=== PATIENT | female | born 2000 | race Caucasian/White ===

== ENCOUNTER → 2019-04-12 17:15 | Outpatient (CLI) | payer OTHER, SELFPAY ==
[2018-12-30 15:59] VITALS: BMI 23.8
--- NOTE | 2019-04-12 17:18 | RAD_ITS ---
STUDY: X-RAY - ABDOMEN/PELVIS REASON FOR EXAM: Female, 18 years old. Constipation TECHNIQUE: 3 frontal views of the abdomen were performed COMPARISON: 05 May 2017 FINDINGS: Normal visualized lung bases. There is an unremarkable bowel gas pattern. There is no demonstrated free abdominal air. The visualized liver, spleen and kidneys are grossly normal in size and morphology. Normal soft tissue structures. Normal visualized osseous structures. RAD/Abd Inc Decub and/or Erect IMPRESSION: Normal x-ray examination of the abdomen and pelvis. Electronically Signed: Minna Chapa, at 18:36 EDT Tel , Service support ,
== END ==
PROVIDERS: Family Provider Family Medicine; PCP Family Medicine; Referring Provider Family Medicine; Visit Provider Family Medicine
DX: K59.00 Constipation, unspecified (principal)
CPT/HCPCS: 74019

== ENCOUNTER → 2020-05-01 11:58 | Outpatient (CLI) | payer OTHER, SELFPAY ==
[2020-05-01 11:53] VITALS: BMI 23.8
--- NOTE | 2020-05-01 12:00 | RAD_ITS ---
STUDY: X-RAY - LUMBAR SPINE REASON FOR EXAM: Female, 19 years old. hx of soreness in lower back, over a week ago had a hard jump while riding a horse, now back pain again today after water skiing recently TECHNIQUE: 5 view(s) of the lumbar spine were obtained. COMPARISON: None FINDINGS: Normal lumbar lordosis. There is no substantial scoliosis. There is a normal alignment of the vertebrae. Normal vertebral bodies and endplates. Normal disc space heights. The soft tissue structures are unremarkable. RAD/L/S Spine Min 4 Views IMPRESSION: Normal x-ray examination of the lumbar spine. Electronically Signed: Elliot Vargas MD at 12:23 EDT , Service support ,
== END ==
PROVIDERS: PCP Family Medicine; Referring Provider Physician Assistant Surgical; Visit Provider Physician Assistant Surgical
DX: S39.012A Strain of muscle, fascia and tendon of lower back, initial encounter (principal)
CPT/HCPCS: 72110

== ENCOUNTER 2020-06-08 16:00 | Outpatient (RCR) | payer OTHER, SELFPAY ==
[2020-04-04 14:35] VITALS: BMI 23.8
[2020-05-01 11:53] VITALS: BMI 23.8
--- NOTE | 2020-05-03 13:41 | MASS.EVAL_ITS ---
Massage Therapy Evaluation: Initial Evaluation Date: 05/01/2020 SUBJECTIVE: Aliza is a 19 year old female who was referred to the [facility] for a massotherapy evaluation by Dr. Yennifer Khoury with the diagnosis of neck and hip pain. She presents today with the symptoms of pain, stiffness and tension in low back and hips. Aliza reports having a past medical history of neck, shoulders, back pain. She reports that her low back is in so much pain she can not get comfortable and she had an X-ray done. She reports having minimal improvement with exercise and stretching over the last few days. She has stopped working out to recover. OBJECTIVE: Upon observation Aliza has some posture issues with her head and shoulders forward from the neutral position in sitting and standing. After examination and palpation, I found Aliza to have high muscle tension with tenderness and myofascial restrictions in her sub occipitals, levator scapulae, trapezius, rhomboids, scalenes, and thoracic paraspinals. Her QL?s, lumbar paraspinals, piriformis, glute medius and minimus all were very tight with fascial restrictions, tender points and trigger points. The first treatment consisted of a one hour massage to her upper body with myofascial release, muscle stripping, trigger point compression techniques, and cervical manual traction. The patient does not respond to deep tissue massages, instead she responds well to gradually working into deep pressure. ASSESSMENT: I feel that Aliza is a good candidate for massotherapy at this time. She had a favorable response to the first treatment with reduction in her muscle aches, pain and tension. She also had improvement in her cervical flexibility and low back flexibility. PLAN: The plan of care was reviewed with the patient. The patient is to be seen on an as needed basis for a total of ten sessions with the recommendation of once every month for a one hour treatment.
--- NOTE | 2020-10-04 17:10 | DS.PCM_ITS ---
Massage Therapy Discharge Summary: Discharge Date: 10/04/2020 Aliza was seen for a massotherapy evaluation on 05/01/2020 with the diagnosis of neck and hip pain. She was treated with two sessions of massage therapy consisting of deep pressure soft tissue techniques, myofascial release and trigger point compression to her cervical, thoracic, lower back, lower extremities and hips. At this time this patient is being discharged from our care at [facility] facility.
== END 2020-06-08 19:00 | disposition home or self-care (01) ==
LOC: MASS 16:00
PROVIDERS: PCP Family Medicine; Referring Provider Family Medicine; Visit Provider Family Medicine
DX: M79.10 Myalgia, unspecified site (principal)
CPT/HCPCS: 97124

== ENCOUNTER 2021-03-22 09:02 | Outpatient (RCR) | payer OTHER, SELFPAY ==
[2020-05-01 11:53] VITALS: BMI 23.8
== END 2021-04-26 23:59 ==
LOC: IMMUN 09:02
PROVIDERS: PCP Family Medicine; Referring Provider Family Medicine; Visit Provider Family Medicine
DX: Z23 Encounter for immunization (principal)
CPT/HCPCS: 0001A; 0002A; 91300

== ENCOUNTER → 2023-12-20 | Outpatient (CLI) | payer OTHER, SELFPAY ==
--- OUTSIDE RECORDS SUMMARY | 2023-12-20 08:47 | XMS RPT_ITS | CCD ---
Author Name Unknown Address [address] [facility] [address] [place] [address] Organization [facility] Care Team Providers Care Document Specialist Name Role Phone Yennifer Michael Primary Care Provider Unavailable Primary Care Provider Unavailabl e Self, Self Primary Care Provider Unavailabl e JANIYA SHEN Attending Unavailable SELF, SELF Primary Care Unavailable SELF, SELF Referring Unavailable SELF, SELF Primary Care Unavailable ENE MILLER Attending Unavailabl e SELF, SELF Referring Unavailable Yennifer Michael Primary Care Provider [phone] JEN GILLETTE Attending Unavailable YENNIFER MICHAEL Primary Care Unavailable Allergies Allergy Classification Reported Allergen(s) Allergy Type Date of Onset Reaction(s) Facility (9 sources) Meperidine; Translations: [MEPERIDINE] Drug Allergy 10-18-2019 Hives, Anaphylaxis [facility] (9 sources) Morphine; Translations: [MORPHINE] Drug Allergy 10-18-2019 Hives, Anaphylaxis [facility] Medications Current Medications Medication Drug Class(es) Dates Sig (Normalized) Sig (Original) ondansetron 4 mg disintegrating oral tablet (2 sources) Serotonin-3 Receptor Antagonist Start: 01-22-2023 End: 01-22-2023 Ondansetron 4mg/2ml (ZOFRAN) injection 4 mg Completed/Discontinued Medications Medication Drug Class(es) Dates Sig (Normalized) Sig (Original) Acetone (2 sources) End: 03-15-2022 ACETONE TOPICAL Apply to affected area. 0 03/15/2022 Discontinued (Course of therapy completed) Problems Active Problems Problem Classification Problem Date Documented Da te Episodic/Chronic Fluid and electrolyte disorders (3 sources) Hypokalemia; Translations: [Hypokalemia] Onset: 01-22-2023 Episodic Inflammatory diseases of female pelvic organs (1 source) Acute vaginitis; Translations: [Acute vaginitis] 05-30-2023 Episodic Nausea and vomiting (3 sources) Nausea and vomiting; Translations: [Nausea with vomiting, unspecified] Onset: 01-22-2023 Episodic Noninfectious gastroenteritis (4 sources) Gastroenteritis; Translations: [Noninfective gastroenteritis and colitis, unspecified] Onset: 01-22-2023 Episodic Other gastrointestinal disorders (1 source) Diarrhea; Translations: [Diarrhea, unspecified] Episodic Other gastrointestinal disorders (2 sources) Diarrhea, unspecified; Translations: [Diarrhea, unspecified] Onset: 01-22-2023 Episodic Other screening for suspected conditions (not mental disorders or infectious disease) (1 source) Patient encounter status; Translations: [Encounter for screening for malignant neoplasm of cervix] Episodic Other upper respiratory disease (1 source) Pain in throat; Translations: [Pain in throat] Episodic Past or Other Problems Problem Classification Problem Date Documented Da te Episodic/Chronic Abdominal pain (5 sources) Abdominal pain; Translations: [Unspecified abdominal pain] Onset: 01-08-2008 01-08-2008 Episodic Other upper respiratory disease (2 sources) Pain in throat; Translations: [Pain in throat] Onset: 10-04-2022 Episodic Viral infection (3 sources) Viral disease; Translations: [Viral infection, unspecified] Onset: 10-04-2022 Episodic Results Test Name Value Interpretation Reference Range Facil ity Vital Signs Date Time Vital Sign Value Performing Clinician Facility 05-30-2023 10:43-0400 Body height 162.6 cm Jen Gillette APRN.EMMETT Work Phone: [facility] 05-30-2023 10:43-0400 Body weight 70.31 kg Jen Gillette APRN.EMMETT Work Phone: [facility] 05-30-2023 10:43-0400 Diastolic blood pressure 72 mm[Hg] Jen Gillette APRN.EMMETT Work Phone: [facility] 05-30-2023 10:43-0400 Systolic blood pressure 114 mm[Hg] Jen Gillette APRN.EMMETT Work Phone: [facility] 01-22-2023 17:21-0400 Body height 162.6 cm Eddie Almaraz MD Work Phone: [facility] 01-22-2023 17:20-0400 Body temperature 98.2 [degF] Eddie Almaraz MD Work Phone: [facility] 01-22-2023 17:20-0400 Diastolic blood pressure 78 mm[Hg] Eddie Almaraz MD Work Phone: [facility] 01-22-2023 17:20-0400 Heart rate 117 /min Eddie Almaraz MD Work Phone: [facility] 01-22-2023 17:20-0400 Respiratory rate 16 /min Eddie Almaraz MD Work Phone: [facility] 01-22-2023 17:20-0400 SaO2% (BldA) [Mass fraction] 98 % Eddie Almaraz MD Work Phone: [facility] 01-22-2023 17:20-0400 Systolic blood pressure 139 mm[Hg] Eddie Almaraz MD Work Phone: [facility] 01-22-2023 15:08-0400 Body temperature 98.01 [degF] Ene Miller INFANT TEACHER-FAMILY LAW MEDIATOR Work Phone: [facility] 01-22-2023 15:08-0400 Body weight 68.08 kg Ene Miller INFANT TEACHER-FAMILY LAW MEDIATOR Work Phone: [facility] 01-22-2023 15:08-0400 Diastolic blood pressure 80 mm[Hg] Ene Miller INFANT TEACHER-FAMILY LAW MEDIATOR Work Phone: [facility] 01-22-2023 15:08-0400 Heart rate 115 /min Ene Miller INFANT TEACHER-FAMILY LAW MEDIATOR Work Phone: [facility] 01-22-2023 15:08-0400 Respiratory rate 16 /min Ene Miller INFANT TEACHER-FAMILY LAW MEDIATOR Work Phone: [facility] 01-22-2023 15:08-0400 SaO2% (BldA) [Mass fraction] 99 % Ene Paul INFANT TEACHER-FAMILY LAW MEDIATOR Work Phone: [facility] 01-22-2023 15:08-0400 Systolic blood pressure 130 mm[Hg] Ene Paul INFANT TEACHER-FAMILY LAW MEDIATOR Work Phone: [facility] 10-04-2022 12:14-0500 Body temperature 98.4 [degF] [facility] 10-04-2022 12:14-0500 Diastolic blood pressure 79 mm[Hg] [facility] 10-04-2022 12:14-0500 Heart rate 84 /min [facility] 10-04-2022 12:14-0500 Respiratory rate 16 /min [facility] 10-04-2022 12:14-0500 SaO2% (BldA) [Mass fraction] 99 % [facility] 10-04-2022 12:14-0500 Systolic blood pressure 125 mm[Hg] [facility] 03-15-2022 13:06-0400 Body height 161.5 cm Jen Gillette APRN.CNM Work Phone: [facility] 03-15-2022 13:06-0400 Body weight 66.04 kg Jen Gillette INFANT TEACHER.CNM Work Phone: [facility] 03-15-2022 13:06-0400 Diastolic blood pressure 82 mm[Hg] Jen Gillette INFANT TEACHER.CNM Work Phone: [facility] 03-15-2022 13:06-0400 Systolic blood pressure 114 mm[Hg] Jen Gillette INFANT TEACHER.CNM Work Phone: [facility] Encounters Encounter Date Encounter Type Care Provider Facility Start: 05-30-2023 End: 05-30-2023 ambulatory JEN GILLETTE Facility:[facility] Start: 05-30-2023 End: 05-30-2023 Patient encounter procedure Jne Gillette INFANT TEACHER.CNM Work Phone: OB/Gynecology Procedures Date Procedure Procedure Detail Performing Clinician Start: 01-22-2023 Infectious agent dna /rna influenza 1st 2 types Marni N Hamzah INFANT TEACHER-FAMILY LAW MEDIATOR Work Phone: Start: 01-22-2023 SARS-CoV-2 (COVID-19 ) RNA [Presence] in Unspecified specimen by SHRAVAN with probe detection Marni N Hamzah INFANT TEACHER-FAMILY LAW MEDIATOR Work Phone: Start: 01-22-2023 Urnls dip stick/tabl et reagent auto microscopy Eddie Almaraz MD Work Phone: Start: 01-22-2023 Urnls dip stick/tabl et rgnt auto w/o microscopy Eddie Almaraz MD Work Phone: Start: 01-22-2023 CBC AND ELECTRONIC DIFF Eddie Almaraz MD Work Phone: Start: 01-22-2023 Complete blood count with white cell differential, automated Eddie Almaraz MD Work Phone: Start: 01-22-2023 Creatinine blood Eddie Almaraz MD Work Phone: Start: 01-22-2023 MINT GREEN TOP TUBE Keyona Almaraz MD Work Phone: Start: 01-22-2023 Urnls dip stick/tabl et rgnt auto w/o microscopy Ene Miller INFANT TEACHER-FAMILY LAW MEDIATOR Work Phone: Start: 10-04-2022 Sars-cov-2 detection by dna/rna Lisette Delvalle PA-C Work Phone: Start: 10-04-2022 End: 10-04-2022 Iadna streptococcus group a amplified probe tq Lisette Delvalle PA-C Work Phone: Plan of Treatment Date Care Activity Detail Author Start: 05-28-2032 Tetanus vaccination TETANUS [facility] Start: 03-15-2025 PAP TESTING PAP TESTING [facility] Start: 06-27-2023 Influenza vaccination [facility] Start: 10-27-2022 DEPRESSION ASSESSMENT DEPRESSION ASSESSMENT [facility] Start: 10-18-2022 PAP TESTING PAP TESTING [facility] Start: 06-27-2022 [facility] Start: 09-12-2021 COVID-19 VACCINE (3 - Booster for Pfizer series) COVID-19 VACCINE (3 - Booster for Pfizer series) [facility] Start: 06-07-2021 COVID-19 VACCINE (3 - Booster for Pfizer series) COVID-19 VACCINE (3 - Booster for Pfizer series) [facility] Start: 06-07-2021 COVID-19 VACCINE (3 - Pfizer series) COVID-19 VACCINE (3 - Pfizer series) [facility] Start: 10-18-2020 CHLAMYDIA SCREENING (18-24) CHLAMYDIA SCREENING (18-24) [facility] Start: 10-18-2020 GC (GONORRHEA) SCREENING (18-24) GC (GONORRHEA) SCREENING (18-24) [facility] Start: 2019 Screening for malignant neoplasm of cervix CERVICAL CANCER SCREENING DISCUSSION [facility] Start: 2017 Urine microalbumin profile DTAP,TDAP,TD (1 - Tdap) [facility] Start: 2016 HEPATITIS C SCREENING HEPATITIS C SCREENING [facility] Start: 2016 HIV SCREENING HIV SCREENING [facility] Start: 2014 MENINGOCOCCAL B: Consider based on risk (1 of 2 - Patient Seeks Protection) MENINGOCOCCAL B: Consider based on risk (1 of 2 - Patient Seeks Protection) [facility] Start: 2014 Screening for Chlamydia trachomatis CHLAMYDIA SCREEN [facility] Start: 2013 HIV screening HIV SCREENING DISCUSSION [facility] Start: 2012 PEDS TO ADULT TRANSITION ANNUAL ASSESSMENT PEDS TO ADULT TRANSITION ANNUAL ASSESSMENT [facility] Start: 2010 Adult depression screening assessment DEPRESSION SCREENING [facility] Start: 2010 PEDS TO ADULT TRANSITION INITIAL DISCUSSION PEDS TO ADULT TRANSITION INITIAL DISCUSSION [facility] Start: 2009 HPV VACCINE (1 - 2-dose series) HPV VACCINE (1 - 2-dose series) [facility] Start: 2009 Vaccination for human papillomavirus HPV VACCINE ADOL (1 - 2-dose series) [facility] Start: 2008 MENINGOCOCCAL B: Consider based on risk (1 of 2 - Risk Bexsero 2-dose series) MENINGOCOCCAL B: Consider based on risk (1 of 2 - Risk Bexsero 2-dose series) [facility] Start: 2007 HPV VACCINE (1 - 2-dose series) HPV VACCINE (1 - 2-dose series) [facility] Start: 2003 COVID-19 VACCINE (1) COVID-19 VACCINE (1) [facility] Start: 1998 HEPATITIS B (1 of 3 - 3-dose series) HEPATITIS B (1 of 3 - 3-dose series) [facility] Start: 1998 Hepatitis C screening HEPATITIS C VIRUS SCREENING [facility] Start: 1998 Screening for Chlamydia trachomatis GONORRHEA SCREEN [facility] Chlamydia trachomatis+Neisseria gonorrhoeae DNA [Presence] in Unspecified specimen by SHRAVAN with probe detection GC/CHLAMYDIA DNA DET Lab Routine Encounter for gynecological examination without abnormal finding Encounter for screening for malignant neoplasm of cervix 03/15/2022 1:34 PM EDT [facility] Work Phone: EXTRA MICRO EXTRA MICRO Flui ds Routine 01/22/2023 6:17 PM EDT [facility] GOLD TOP TUBE GOLD TOP TUBE La b Routine 01/22/2023 5:28 PM EDT [facility] LAVENDER TOP TUBE LAVENDER TOP T UBE Lab Routine 01/22/2023 5:28 PM EDT [facility] LT BLUE TOP TUBE LT BLUE TOP TUB E Lab Routine 01/22/2023 5:28 PM EDT [facility] Microscopic observat ion [Identifier] in Vaginal fluid by Gram stain BACT/[place] VAG GRAM STAIN Microbiology Routine Acute vaginitis 05/30/2023 11:31 AM EDT [facility] Work Phone: PAP FLUID CERVICAL SCREENING PAP FLUID CERVICAL SCREENING Lab Routine Encounter for screening for malignant neoplasm of cervix 03/15/2022 1:34 PM EDT [facility] Work Phone: RAINBOW DRAW RAINBOW DRAW Lab Routine 01/22/2023 5:28 PM EDT [facility] Urinalysis with refl ex to microscopy and culture URINE DIPSTICK; REFLEX MICROSCOPY; REFLEX CULTURE Fluids Routine 01/22/2023 6:17 PM EDT [facility] Immunizations Immunization Date Immunization Notes Care Provider Cee gordon 08-10-2018 hepatitis A vaccine, pediatric/adolescent dosage, 2 dose schedule Jen Gillette INFANT TEACHER.CNM Work Phone: [facility] Work Phone: 08-10-2018 influenza, seasonal, injectable Jen Gillette INFANT TEACHER.CNM Work Phone: [facility] Work Phone: 09-18-2016 influenza, injectabl e, quadrivalent, contains preservative Jen Gillette INFANT TEACHER.CNM Work Phone: [facility] Work Phone: 05-29-2016 meningococcal polysaccharide (groups A, C, Y and W-135) diphtheria toxoid conjugate vaccine (MCV4P) Jen Gillette INFANT TEACHER.CNM Work Phone: [facility] Work Phone: 09-04-2015 influenza, seasonal, injectable Jen Gillette INFANT TEACHER.CNM Work Phone: [facility] Work Phone: 09-04-2015 meningococcal polysaccharide vaccine (MPSV4) Jen Gillette INFANT TEACHER.CNM Work Phone: [facility] Work Phone: 09-01-2013 influenza, seasonal, injectable Jen Gillette INFANT TEACHER.CNM Work Phone: [facility] Work Phone: 08-24-2012 influenza, seasonal, injectable Jen Gillette INFANT TEACHER.CNM Work Phone: [facility] Work Phone: Payers Date Payer Category Payer Private Health Insurance [id number] 2022 Private Health Insurance [id number] 2022 Unknown [employer] M [place] [id number] 2022-Present [address] [place] [address] [id number] 2022 Unknown [id number] 2019 Unknown MMO MMO TPA [id number] 2019-Present [address] [place] [address] PPO [id number] 1998 Unknown [id number] 1998 Unknown [id number] 1998 Unknown [id number] Social History Date Type Detail Facility Start: 10-04-2022 End: 05-30-2023 Tobacco smoking status INIS Never smoked tobacco [facility] Start: 10-17-2020 End: 05-30-2023 Alcohol intake Current drinker of alcohol (finding) [facility] Start: 10-18-2019 History SDOH Alcohol Comment social [facility] Start: 1998 Sex Assigned At Not on file [facility] Start: 03-15-2022 History SDOH Alcohol Comment social - rare [facility] Start: 03-05-2022 End: 01-22-2023 Exposure to SARS-CoV-2 (event) Not sure [facility] Start: 10-04-2022 End: 05-30-2023 Tobacco use and exposure Smokeless tobacco non-user [facility] Start: 1998 Sex Assigned At Female O [facility] Start: 11-13-2022 End: 05-30-2023 History of Social function [facility] Start: 11-13-2022 End: 05-30-2023 Tobacco use panel [facility] National Score (1-100), lower number is lower risk 49 [facility] Clinical Notes 01-30-2022 to 05-30-2023 Jen Gillette APRN.CNM - 05/30/2023 10:37 AM EDTTelephone Encounter - Alicja Thomas RN - 04/24/2023 9:34 AM EDTTelephone Encounter - Corrina Lucio - 04/24/2023 8:52 AM EDTAttachments Note Date & Type Note Facility 05-30-2023 Note HNO ID: [id number] Author: Jen Gillette APRN.CNM Service: ? Author Type: Senior Manager [employer] Type: Progress Notes Filed: 05/30/2023 11:47 AM Note Text: Aliza is a 22 year old who presents for an annual gynecologic exam without complaints. She is getting next month. 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 Menses: no menses - continuous OCPs. - May desire IUD Contraception: combined hormonal contraceptives HPV vaccine: No Last Pap: 03/22/2022 normal HPV: negative History of abnormal pap: No Last mammogram: never Sexually active: Yes Pain with intercourse: No Postcoital bleeding: No OB History T0 L0 SAB0 IAB0 Ectopic0 Multiple0 Live Births0 Auditor Appraiser History LMP: 11/27/2019 (Approximate), Drug Induced Amenorrhea Age at Menarche: Age at First : Age at Menopause: Auditor Appraiser History Comments: Sexual Activity: Yes; Male Contraception: Pill PAST MEDICAL HISTORY Diagnosis Date Anxiety state PAST SURGICAL HISTORY Procedure Laterality Date NONE FAMILY HISTORY Problem Relation Age of Onset Diabetes Father Asthma Maternal Grandmother SOCIAL HISTORY Social History Tobacco Use Smoking status: Never Smokeless tobacco: Never Vaping Use Vaping Use: Never used Substance Use Topics Alcohol use: Yes Comment: social - rare Drug use: No REVIEW OF SYSTEMS Abdomen: No abdominal pain, nausea, vomiting, diarrhea, or constipation. No bloating, early satiety, indigestion, or increased flatulence. Bladder: No dysuria, gross hematuria, urinary frequency, urinary urgency, or incontinence. Breast: No breast lumps, nipple d/c, overlying skin changes, redness or skin retraction. Allergies and current medication updated:Yes EXAM: BP 114/72 Ht 5' 4 (1.63m) LMP 11/27/2019 GENERAL: pleasant, female in no apparent distress HEENT: Normocephalic, atraumatic, mucus membranes moist, and no lesions NECK: Supple, full range of motion, no adenopathy, and thyroid normal DERMATOLOGY: Normal, without lesions, non-icteric, and non-hirsute BREAST: soft, non-tender, symmetric, no dominant mass, normal nipple-areolar complex, no lymphadenopathy, and no nipple discharge CHEST: Normal inspiratory effort ABDOMEN: soft, non-tender, and no masses PELVIC: external genitalia normal, normal Bartholin's glands, urethra, Flomaton's glands, no vulvar lesions, no cervical lesions, good vaginal support, physiologic discharge present, normal appearing perineal body and perianal region, Moderate amount of thick, yellow vaginal discharge present BIMANUAL: uterus normal size, shape and consistency, no adnexal masses, and non-tender RECTOVAGINAL: deferred. NEURO: alert and oriented x3,exam grossly non-focal EXTREMITIES: normal ASSESSMENT/PLAN: 1) Health maintenance: Pap/HPV up to date. Nutrition, exercise and routine health maintenance exams reviewed. BACT/Yeast swab completed 2) Contraception: combined hormonal contraceptives. Contraceptive options reviewed and information provided. May desire IUD after weddding 3) STD screening: Declined STD check. 4) Follow up one year or sooner as needed [facility] History of Presen t illness Narrative Aliza is a 22 year old who presents for an annual gynecologic exam without complaints. She is getting next month. 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 Menses: no menses - continuous OCPs. - May desire IUD Contraception: combined hormonal contraceptives HPV vaccine: No Last Pap: 03/22/2022 normal HPV: negative History of abnormal pap: No Last mammogram: never Sexually active: Yes Pain with intercourse: No Postcoital bleeding: No OB History T0 L0 SAB0 IAB0 Ectopic0 Multiple0 Live Births0 Auditor Appraiser History LMP: 11/27/2019 (Approximate), Drug Induced Amenorrhea Age at Menarche: Age at First : Age at Menopause: Auditor Appraiser History Comments: Sexual Activity: Yes; Male Contraception: Pill PAST MEDICAL HISTORY Diagnosis Date Anxiety state PAST SURGICAL HISTORY Procedure Laterality Date NONE FAMILY HISTORY Problem Relation Age of Onset Diabetes Father Asthma Maternal Grandmother SOCIAL HISTORY Social History Tobacco Use Smoking status: Never Smokeless tobacco: Never Vaping Use Vaping Use: Never used Substance Use Topics Alcohol use: Yes Comment: social - rare Drug use: No REVIEW OF SYSTEMS Abdomen: No abdominal pain, nausea, vomiting, diarrhea, or constipation. No bloating, early satiety, indigestion, or increased flatulence. Bladder: No dysuria, gross hematuria, urinary frequency, urinary urgency, or incontinence. Breast: No breast lumps, nipple d/c, overlying skin changes, redness or skin retraction. Allergies and current medication updated:Yes EXAM: BP 114/72 Ht 5' 4 (1.63m) LMP 11/27/2019 GENERAL: pleasant, female in no apparent distress HEENT: Normocephalic, atraumatic, mucus membranes moist, and no lesions NECK: Supple, full range of motion, no adenopathy, and thyroid normal DERMATOLOGY: Normal, without lesions, non-icteric, and non-hirsute BREAST: soft, non-tender, symmetric, no dominant mass, normal nipple-areolar complex, no lymphadenopathy, and no nipple discharge CHEST: Normal inspiratory effort ABDOMEN: soft, non-tender, and no masses PELVIC: external genitalia normal, normal Bartholin's glands, urethra, Flomaton's glands, no vulvar lesions, no cervical lesions, good vaginal support, physiologic discharge present, normal appearing perineal body and perianal region, Moderate amount of thick, yellow vaginal discharge present BIMANUAL: uterus normal size, shape and consistency, no adnexal masses, and non-tender RECTOVAGINAL: deferred. NEURO: alert and oriented x3,exam grossly non-focal EXTREMITIES: normal ASSESSMENT/PLAN: 1) Health maintenance: Pap/HPV up to date. Nutrition, exercise and routine health maintenance exams reviewed. BACT/Yeast swab completed 2) Contraception: combined hormonal contraceptives. Contraceptive options reviewed and information provided. May desire IUD after weddding 3) STD screening: Declined STD check. 4) Follow up one year or sooner as needed Jen Gillette APRN.CNM documented in this encounter [facility] 04-24-2023 Miscellaneous Notes Duplicate request. See [facility] rx refill encounter. Alicja Thomas RN Patient has been identified by name and date of : Yes Last office visit in this department: 03/15/2022 RX INSTRUCTIONS: Patient aware RX will be sent to pharmacy. No need to notify patient. Patient phones requesting refills as follows: Requested Prescriptions Pending Prescriptions Disp Refills Norethindrone Acet-Ethinyl Est (LOESTRIN ,) 1-20 mg-mcg per tablet 84 tablet 4 Sig: Take 1 tablet by mouth once daily. for continuous use, active pills only, new pack q 3 weeks Please review and advise. Corrina Lucio documented in this encounter [facility] 01-29-2023 Miscellaneous Notes Agree with plan! Yes she can start new pack this Friday! Do we need to send RX somewhere? Jen Gillette APRN.CNM Spoke with patient. 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 Ok to start a new pack this Friday? If so, she is aware that she would need to use back up contraception. Please advise. documented in this encounter [facility] 01-22-2023 Hospital Discharg e hellen Goodson APRN-RENAN - 01/22/2023 9:04 PM EDT Please use an over the counter fiber supplement such as Metamucil to help with diarrhea as this will provide bulk to the stool to help solidify the stool. Please use an over the counter probiotic to also help regulate the bowel movements. Please ensure you are drinking adequate amounts of water and alternating with a sports drink to ensure hydration and electrolyte replacement. The following attachments cannot be sent through Care Everywhere.Gastroenteritis (Yoruba)Oral Rehydration (Yoruba)documented in this encounter [facility] 01-22-2023 Physician Emergency department Note Medical Decision Making Patient initially sent over for concern of pyelonephritis. Patient's microscopy reveals negative bacteria. Do not suspect pyelonephritis and/or acute UTI based off of repeat urine. Patient's K was mildly low at 3.4 and this was replaced in the ER. Patient was also given 1 L of normal saline for hydration. White blood cell count was within normal limits. Suspect patient to have viral gastroenteritis and I recommend patient to use [id number] probiotic as well as fiber supplementation to help bowels return to normal as well as prescription for ondansetron ODT to help with nausea. Recommend aggressive oral hydration as well as clear liquid diet, advancing as tolerated. Return precautions discussed. Covid and flu swabs are still pending at this time. Patient is adamant that she wants to leave at this time despite fluid COVID test still pending. I have recommended that she follow up MyChart to see the results and she will be discharged. Amount and/or Complexity of Data Reviewed External Data Reviewed: labs and notes. Labs: ordered. Decision-making details documented in ED Course. Risk Prescription drug management. DANNI Ham 01/22/232104 DANNI Ham 01/22/232110 [facility] 01-22-2023 Emergency department Note Medical Decision Making Patient initially sent over for concern of pyelonephritis. Patient's microscopy reveals negative bacteria. Do not suspect pyelonephritis and/or acute UTI based off of repeat urine. Patient's K was mildly low at 3.4 and this was replaced in the ER. Patient was also given 1 L of normal saline for hydration. White blood cell count was within normal limits. Suspect patient to have viral gastroenteritis and I recommend patient to use [id number] probiotic as well as fiber supplementation to help bowels return to normal as well as prescription for ondansetron ODT to help with nausea. Recommend aggressive oral hydration as well as clear liquid diet, advancing as tolerated. Return precautions discussed. Covid and flu swabs are still pending at this time. Patient is adamant that she wants to leave at this time despite fluid COVID test still pending. I have recommended that she follow up MyChart to see the results and she will be discharged. Amount and/or Complexity of Data Reviewed External Data Reviewed: labs and notes. Labs: ordered. Decision-making details documented in ED Course. Risk Prescription drug management. DANNI Ham 01/22/232104 DANNI Ham 01/22/232110 dEPARTMENT of Emergency Medicine CHIEF COMPLAINT Vomiting, Diarrhea, and Urinary Pain HPI Aliza Centeno is a 22 y.o. female who presents with no past history complains of 4 days of left flank pain and now one day of nausea, vomiting and diarrhea. There is no associated fever, abdominal pain or dysuria. There are no aggravating or relieving factors. REVIEW OF SYSTEMS Review of Systems PAST MEDICAL HISTORY No past medical history on file. SURGICAL HISTORY Past Surgical History: Procedure Laterality Date ARM SURGERY CURRENT MEDICATIONS No current facility-administered medications for this encounter. No current outpatient medications on file. ALLERGIES Allergies Allergen Reactions Meperidine Anaphylaxis and Hives Morphine Anaphylaxis and Hives FAMILY HISTORY No family history on file. SOCIAL HISTORY Social History Socioeconomic History Marital status: Single Spouse name: Not on file Number of children: Not on file Years of education: Not on file Highest education level: Not on file Occupational History Not on file Tobacco Use Smoking status: Never Smokeless tobacco: Never Vaping Use Vaping Use: Never used Substance and Sexual Activity Alcohol use: Yes Drug use: Never Sexual activity: Not on file Other Topics Concern Not on file Social History Narrative Not on file Social Determinants of Health Financial Resource Strain: Not on file Food Insecurity: Not on file Transportation Needs: Not on file Physical Activity: Not on file Stress: Not on file Social Connections: Not on file Intimate Partner Violence: Not on file Housing Stability: Not on file PHYSICAL EXAM BP 139/78 Pulse 117 Temp 98.2 F (36.8 C) (Oral) Resp 16 Ht 1.626 m (5' 4 ) SpO2 98% BMI 25.76 kg/m Smoking Status Never Physical Exam Constitutional: Appearance: She is well-developed. HENT: Head: Normocephalic and atraumatic. Eyes: Pupils: Pupils are equal, round, and reactive to light. Cardiovascular: Rate and Rhythm: Normal rate and regular rhythm. Pulmonary: Effort: Pulmonary effort is normal. No respiratory distress. Breath sounds: Normal breath sounds. Abdominal: Palpations: Abdomen is soft. There is no mass. Tenderness: There is no abdominal tenderness. There is no guarding or rebound. Skin: General: Skin is warm and dry. Neurological: Mental Status: She is alert and oriented to person, place, and time. ED COURSE & MEDICAL DECISION MAKING Medical Decision Making AGE vs dehydration vs pyelonephritis, plan lab and sx control AGE (acute gastroenteritis): acute illness or injury Amount and/or Complexity of Data Reviewed Labs: ordered. Risk Prescription drug management. Parenteral controlled substances. Eddie Almaraz MD 01/22/231810 Pt sts she started to have flank pain Friday then started to have vomiting, fever, body aches, diarrhea. Pt sts burning with urination that started an hour ago. Pt sent from for fluids and further work up for kidney infection. documented in this encounter [facility] 01-22-2023 Physician Emergency department Note dEPARTMENT of Emergency Medicine CHIEF COMPLAINT Vomiting, Diarrhea, and Urinary Pain HPI Aliza Centeno is a 22 y.o. female who presents with no past history complains of 4 days of left flank pain and now one day of nausea, vomiting and diarrhea. There is no associated fever, abdominal pain or dysuria. There are no aggravating or relieving factors. REVIEW OF SYSTEMS Review of Systems PAST MEDICAL HISTORY No past medical history on file. SURGICAL HISTORY Past Surgical History: Procedure Laterality Date ARM SURGERY CURRENT MEDICATIONS No current facility-administered medications for this encounter. No current outpatient medications on file. ALLERGIES Allergies Allergen Reactions Meperidine Anaphylaxis and Hives Morphine Anaphylaxis and Hives FAMILY HISTORY No family history on file. SOCIAL HISTORY Social History Socioeconomic History Marital status: Single Spouse name: Not on file Number of children: Not on file Years of education: Not on file Highest education level: Not on file Occupational History Not on file Tobacco Use Smoking status: Never Smokeless tobacco: Never Vaping Use Vaping Use: Never used Substance and Sexual Activity Alcohol use: Yes Drug use: Never Sexual activity: Not on file Other Topics Concern Not on file Social History Narrative Not on file Social Determinants of Health Financial Resource Strain: Not on file Food Insecurity: Not on file Transportation Needs: Not on file Physical Activity: Not on file Stress: Not on file Social Connections: Not on file Intimate Partner Violence: Not on file Housing Stability: Not on file PHYSICAL EXAM BP 139/78 Pulse 117 Temp 98.2 F (36.8 C) (Oral) Resp 16 Ht 1.626 m (5' 4 ) SpO2 98% BMI 25.76 kg/m Smoking Status Never Physical Exam Constitutional: Appearance: She is well-developed. HENT: Head: Normocephalic and atraumatic. Eyes: Pupils: Pupils are equal, round, and reactive to light. Cardiovascular: Rate and Rhythm: Normal rate and regular rhythm. Pulmonary: Effort: Pulmonary effort is normal. No respiratory distress. Breath sounds: Normal breath sounds. Abdominal: Palpations: Abdomen is soft. There is no mass. Tenderness: There is no abdominal tenderness. There is no guarding or rebound. Skin: General: Skin is warm and dry. Neurological: Mental Status: She is alert and oriented to person, place, and time. ED COURSE & MEDICAL DECISION MAKING Medical Decision Making AGE vs dehydration vs pyelonephritis, plan lab and sx control AGE (acute gastroenteritis): acute illness or injury Amount and/or Complexity of Data Reviewed Labs: ordered. Risk Prescription drug management. Parenteral controlled substances. Eddie Almaraz MD 01/22/23 [id number] [facility] Work Phone: 01-22-2023 Emergency department Note Pt sts she started to have flank pain Friday then started to have vomiting, fever, body aches, diarrhea. Pt sts burning with urination that started an hour ago. Pt sent from for fluids and further work up for kidney infection. [facility] 01-22-2023 History of Presen t illness Narrative Chief Complaint Patient presents with Nausea Vomiting Diarrhea History of Present Illness Ms. Centeno is a 22 y.o. female who presents today for evaluation of diarrhea, nausea/vomiting, body aches, sore throat, headache, left flank pain. Left flank pain onset 2 days ago. Followed by nausea/vomiting, elevated temperature (T max 100), body aches, fatigue, and diarrhea. Onset yesterday. Reports 3 episodes of vomiting today, 4 episodes of diarrhea today. Reports mild lightheadedness with standing up. Onset 3 days ago. Denies chest pain, SOB. Denies severe abdominal pain. Denies blood in stool, melena, hematemesis. Denies dysuria, urinary frequency. Reports last urinated about 6 hours ago. Patient has attempted to drink water and sprite, but has caused vomiting and diarrhea. Limited PO intake. Treatments tried: Tylenol and ibuprofen yesterday, none today Recent ill contacts? No Problem list, medication list reviewed and updated. Past medical, surgical, family, and social history reviewed and updated in [facility]. Vitals: 01/22/23 1508 BP: 130/80 Pulse: 115 Resp: 16 Temp: 98 degrees F (36.7 degrees C) TempSrc: Infrared SpO2: 99% Weight: 68.1 kg (150 lb 1.6 oz) Physical Exam Constitutional: General: She is not in acute distress. Cardiovascular: Rate and Rhythm: Regular rhythm. Tachycardia present. Heart sounds: Normal heart sounds. No murmur heard. Pulmonary: Effort: Pulmonary effort is normal. No respiratory distress. Breath sounds: Normal breath sounds. No wheezing. Abdominal: General: Abdomen is flat. Bowel sounds are normal. Palpations: Abdomen is soft. Tenderness: There is no abdominal tenderness. There is no right CVA tenderness, left CVA tenderness (mild tenderness to left back palpation), guarding or rebound. Skin: General: Skin is warm and dry. Neurological: Mental Status: She is alert and oriented to person, place, and time. ASSESSMENT/PLAN ICD-10-CM 1. Gastroenteritis K52.9 POCT URINE DIPSTICK AUTOMATED 2. Nausea and vomiting, unspecified vomiting type R11.2 POCT URINE DIPSTICK AUTOMATED 3. Diarrhea, unspecified type R19.7 POCT URINE DIPSTICK AUTOMATED The patient was seen today at [facility] and evaluated. Patient with left flank pain, fever, N/V/D, lightheadedness, tachycardia, and evidence of possible UTI on POCT urine dipstick. Concern for possible pyelonephritis vs gastroenteritis vs other pathology. Concern for dehydration requiring IV fluids. It was determined the patient needed a level of care beyond what can be offered at this facility. Recommendation patient be seen at: Emergency Room Patient agreed to go: Yes - patient to have family member drive her to [facility] ER. Patient verbalized understanding agreement with plan of care. All questions were answered. documented in this encounter [facility] 01-22-2023 Instructions DANNI Velazquez - 01/22/2023 3:00 PM EDT [facility] provides convenient, walk-in health care for common conditions as well as serious, edc-[id number] illnesses and injuries -- no appointment needed. If you re experiencing a serious or life-threatening illness or injury, visit the closest Emergency Department or call 911. Open seven days a week, our Advanced Immediate Care locations are staffed by providers who have emergency medical training, giving you the expertise of a hospital emergency department but with shorter wait times and at a lower cost. [facility] have extended care capabilities, including assessing mild to moderate abdominal pain, non-severe chest pain/shortness of breath and non-severe dizziness. Conditions treated and services offered include: Rps-lltd-rjzfkzhvqvb cuts and agosto Colds, flu and sore throat Stitches and suturing Minor sprains, strains and injuries Suspected broken bones or dislocations Urgent X-rays/CT and lab work Postoperative problems and concerns Suspected blood clots Urinary and kidney infections Allergic reactions Skin rashes and infections Most insurances accepted. A specialist copay will be collected, and coinsurance may be applicable if testing is required. Hours vary by location. [employer] users can reserve a spot in line. Reserving your spot is not an appointment, but helps to reduce your wait time upon arrival and notifies the clinical team you are coming. Every effort is made to see you at your reserved time, but please be advised that medical emergencies may arise. Locations [facility] in Outpatient Care [place] [address] [place] [address] 1st Floor, [address] [place] [address] Hours: 10:00 AM - 9:30 PM 7 days a week [facility] Im[facility] in Outpatient Care [address] Floor, [address] [place] [address] Hours: 10:00 AM - 9:30 PM 7 days a week [facility] [address] [place] [address] Entrance is located behind the Emergency Department on the west side of the building. Follow signs for Wound Care and Advanced Immediate Care. Hours: Friday - Friday: 4:00 PM - 9:30 PM Friday and Friday: 10:00 AM - 5:30 PM Patients ages 14 and older [facility] [address] [place] [address] Hours: Friday - Friday: 4:00 PM - 9:30 PM Friday and Friday: 10:00 AM - 5:30 PM Patients ages 14 and older documented in this encounter [facility] 10-04-2022 History of Presen t illness Narrative [facility] ENCOUNTER CHIEF COMPLAINT Sore Throat (Sore throat that started last night, fatigue, ) HPI Chantale E Baker is a 22 y.o. female who presents sore throat and fatigue since last night. 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 She is flu and COVID vaccinated. Nontoxic in appearance and no other medical problems or complaints REVIEW OF SYSTEMS Review of Systems Constitutional: Negative for chills and fever. HENT: Positive for sore throat. Negative for ear pain. Respiratory: Negative for cough. Cardiovascular: Negative for chest pain and palpitations. Gastrointestinal: Negative for abdominal pain, diarrhea, nausea and vomiting. Skin: Negative for rash. All other systems reviewed and are negative. PAST MEDICAL HISTORY No past medical history on file. SURGICAL HISTORY No past surgical history on file. CURRENT MEDICATIONS No current outpatient medications on file. ALLERGIES Not on File FAMILY HISTORY No family history on file. SOCIAL HISTORY Social History Socioeconomic History Marital status: Single Physical Exam Vitals and nursing note reviewed. Constitutional: General: She is not in acute distress. Appearance: She is normal weight. She is not ill-appearing or toxic-appearing. HENT: Head: Normocephalic and atraumatic. Right Ear: Tympanic membrane, ear canal and external ear normal. Left Ear: Tympanic membrane, ear canal and external ear normal. Nose: Nose normal. No congestion or rhinorrhea. Mouth/Throat: Mouth: Mucous membranes are moist. Pharynx: Oropharynx is clear. No oropharyngeal exudate or posterior oropharyngeal erythema. Eyes: Extraocular Movements: Extraocular movements intact. Conjunctiva/sclera: Conjunctivae normal. Pupils: Pupils are equal, round, and reactive to light. Cardiovascular: Rate and Rhythm: Normal rate and regular rhythm. Pulses: Normal pulses. Heart sounds: No murmur heard. Pulmonary: Effort: Pulmonary effort is normal. No respiratory distress. Breath sounds: Normal breath sounds. No wheezing, rhonchi or rales. Abdominal: General: Abdomen is flat. Palpations: Abdomen is soft. Tenderness: There is no abdominal tenderness. Musculoskeletal: General: No deformity. Normal range of motion. Cervical back: Normal range of motion. Lymphadenopathy: Cervical: No cervical adenopathy. Skin: General: Skin is warm and dry. Coloration: Skin is not pale. Neurological: General: No focal deficit present. Mental Status: She is alert. Motor: No weakness. Psychiatric: Mood and Affect: Mood normal. ED COURSE & MEDICAL DECISION MAKING Results for orders placed or performed in visit on 10/04/22 POCT MOLECULAR STREP A Result Value Ref Range MOLECULAR STREP A, POCT Negative POCT SARS-COV-2 RAPID Result Value Ref Range SARS-COV-2 POC NOT DETECTED NOT DETECTED, INCONCLUSIVE POCT MOLECULAR FLU Result Value Ref Range MOLECULAR FLU A, POCT Negative MOLECULAR FLU B, POCT Negative MOLECULAR FLU, POCT DX: VIRAL SYNDROME documented in this encounter [facility] 10-04-2022 Instructions Lisette Delvalle PA-C - 10/04/2022 12:00 PM EST Results for orders placed or performed in visit on 10/04/22 POCT MOLECULAR STREP A Result Value Ref Range MOLECULAR STREP A, POCT Negative POCT SARS-COV-2 RAPID Result Value Ref Range SARS-COV-2 POC NOT DETECTED NOT DETECTED, INCONCLUSIVE POCT MOLECULAR FLU Result Value Ref Range MOLECULAR FLU A, POCT Negative MOLECULAR FLU B, POCT Negative MOLECULAR FLU, POCT Increase oral fluids Take Vit C and zinc Take OTC medications for symptom control The following attachments cannot be sent through Care Everywhere.Viral Infections (Yoruba)documented in this encounter [facility] 03-15-2022 History of Presen t illness Narrative Aliza is a 21 year old who presents for an annual gynecologic exam without complaints. 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 Hoping to get engaged soon. 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 Menses: no menses - continuous OCPs. Contraception: combined hormonal contraceptives HPV vaccine: No Last Pap: 10/22/2019 normal HPV: negative History of abnormal pap: No Last mammogram: never Sexually active: Yes Time with current partner: 5 years Pain with intercourse: No Postcoital bleeding: No Exercise: Power lifting Diet: regular- recently bulking to increase weight Seatbelt use: Yes OB History T0 L0 SAB0 IAB0 Ectopic0 Multiple0 Live Births0 Auditor Appraiser History LMP: 09/20/2020 (LMP Unknown), Drug Induced Amenorrhea Age at Menarche: Age at First : Age at Menopause: Auditor Appraiser History Comments: Sexual Activity: Yes; Male Contraception: Pill PAST MEDICAL HISTORY Diagnosis Date Anxiety state PAST SURGICAL HISTORY Procedure Laterality Date NONE FAMILY HISTORY Problem Relation Age of Onset Diabetes Father Asthma Maternal Grandmother SOCIAL HISTORY Social History Tobacco Use Smoking status: Never Smoker Smokeless tobacco: Never Used Vaping Use Vaping Use: Never used Substance Use Topics Alcohol use: Yes Comment: social - rare Drug use: No REVIEW OF SYSTEMS Abdomen: No abdominal pain, nausea, vomiting, diarrhea, or constipation. No bloating, early satiety, indigestion, or increased flatulence. Bladder: No dysuria, gross hematuria, urinary frequency, urinary urgency, or incontinence. Breast: No breast lumps, nipple d/c, overlying skin changes, redness or skin retraction. Allergies and current medication updated:Yes EXAM: BP 114/82 Ht 5' 3.583 (1.62m) Wt 145 lb 9.6 oz (66.0kg) LMP 09/20/2020 BMI 25.32 kg/(m^2). GENERAL: pleasant, female in no apparent distress HEENT: Normocephalic, atraumatic, mucus membranes moist and no lesions NECK: Supple and full range of motion DERMATOLOGY: Normal, without lesions, non-icteric and non-hirsute BREAST: soft, non-tender, symmetric, no dominant mass, normal nipple-areolar complex, no lymphadenopathy, no nipple discharge and fibrocystic changes CHEST: Normal inspiratory effort ABDOMEN: soft, non-tender and no masses PELVIC: external genitalia normal, normal Bartholin's glands, urethra, Flomaton's glands, no vulvar lesions, no cervical lesions, good vaginal support, physiologic discharge present, normal appearing perineal body and perianal region BIMANUAL: uterus normal size, shape and consistency, no adnexal masses, non-tender and no cervical motion tenderness RECTOVAGINAL: deferred. NEURO: alert and oriented x3,exam grossly non-focal EXTREMITIES: normal ASSESSMENT/PLAN: 1) Health maintenance: Pap done with reflex HPV. Nutrition, exercise and routine health maintenance exams reviewed. 2) Contraception: combined hormonal contraceptives. Contraceptive options reviewed and information provided. R/B/A to OCP reviewed including reporting any s/s of ACHES or changes to health status. RX sent for refills 3) STD screening: Accepted STD check for Gonorrhea and Chlamydia. 4) Follow up one year or sooner as needed Jen Gillette APRN.CNM documented in this encounter [facility] 01-30-2022 Miscellaneous Notes PSS: Please contact patient to schedule annual exam. Jill Stanton RN [facility] called requesting a refill of OCP. Patient last seen 10/17/20. PSS spoke with patient in October and patient said that she would call back to schedule annual exam. No upcoming appointments. Ghislaine Crabtree RN documented in this encounter [facility] Throat pain- Primary Viral syndrome Unspecified viral infection, in conditions classified elsewhere and of unspecified site [facility] Diagnosis Gastroenteritis- Primary Other and unspecified noninfectious gastroenteritis and colitis Nausea and vomiting, unspecified vomiting type Diarrhea, unspecified type [facility] Diagnosis AGE (acute gastroenteritis)- Primary Other and unspecified noninfectious gastroenteritis and colitis Hypokalemia Hypopotassemia [facility] Encounter for gynecological examination (general) (routine) without abnormal findings- Primary Acute vaginitis Vaginitis and vulvovaginitis, unspecified documented in this encounter [facility] Summary Purpose Family History No Family History Records FoundNo Family History Records Found Advance Directives No Advanced Directives Records FoundNo Advanced Directives Records Found Additional Source Comments Source Comments (unrecognize d section and content) In the event this informatio n is protected by the Federal Confidentiality of Alcohol and Drug Abuse Patient Records regulations: The Federal rules restrict any use of the information to criminally investigate or prosecute any alcohol or drug abuse patient.[facility] the event this information is protected by the Federal Confidentiality of Alcohol and Drug Abuse Patient Records regulations: The Federal rules restrict any use of the information to criminally investigate or prosecute any alcohol or drug abuse patient.[facility] System[facility] the event this information is protected by the Federal Confidentiality of Alcohol and Drug Abuse Patient Records regulations: The Federal rules restrict any use of the information to criminally investigate or prosecute any alcohol or drug abuse patient.[facility] System[facility] the event this information is protected by the Federal Confidentiality of Alcohol and Drug Abuse Patient Records regulations: The Federal rules restrict any use of the information to criminally investigate or prosecute any alcohol or drug abuse patient.[facility] System[facility] the event this information is protected by the Federal Confidentiality of Alcohol and Drug Abuse Patient Records regulations: The Federal rules restrict any use of the information to criminally investigate or prosecute any alcohol or drug abuse patient.[facility] Reason for Visit (unrecogniz ed section and content) Reason Onset Date Comments Yearly Exam 03/15/2022 Specialty Diagnoses / Procedures Referred By Sherin dahl Referred To 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 Diagnoses Encounter for annual health examination annual Procedures OFFICE/OUTPATIENT ESTABLISHED HIGH MDM 40-54 MIN EST I ANNUAL PATIENT Yennifer Michael [address] [place] [address] Jen Gillette APRN.CNM [address] [place] [id number] Referral ID Status Reason Start Date Expiration Date V isits Requested Visits Authorized [id number] Authorized 03/04/2022 03/04/2023 99 99 Reason Comments Sore Throat Sore throat that sta rted last night, fatigue, Reason Comments Nausea Vomiting Diarrhea Reason Comments Vomiting Diarrhea Urinary Pain Reason Onset Date Comments Refill Request 04/24/2023 Care Teams (unrecognized sec tion and content) Document Specialist Relationship Specialty Start Date End Date Yennifer Michael PCP - General 01/08/08 Document Specialist Relationship Specialty Start Date End Date Self, Self PCP - General Other 01/22/23 Document Specialist Relationship Specialty Start Date End Date Self, Self PCP - General Other 01/22/23 Document Specialist Relationship Specialty Start Date End Date Yennifer Michael PCP - General 01/08/08 Document Specialist Relationship Specialty Start Date End Date Yennifer Michael PCP - General 01/08/08 Document Specialist Relationship Specialty Start Date End Date Yennifer Michael PCP - General 01/08/08 Scheduled Active and Recently Administ ered Medications (unrecognized section and content) INFORMATION SOURCE (unrecogn ized section and content) DATE CREATED AUTHOR AUTHOR'S SCOTTY ELLISON 05/31/2023 [facility] FOR RECORDS PERTAINING TO PATIENTS WHO ARE OR HAVE BEEN ENROLLED IN A CHEMICAL DEPENDENCY/SUBSTANCEABUSE PROGRAM, SOME INFORMATION MAY BE OMITTED. This clinical summary was aggregated from multiple sources. Caution should be exercised in using it in the provision of clinical care. This summary normalizes information from multiple sources, and as a consequence, information in this document may materially change the coding, format and clinical context of patient data. In addition, data may be omitted in some cases. CLINICAL DECISIONS SHOULD BE BASED ON THE PRIMARY CLINICAL RECORDS. [facility]. provides no warranty or guarantee of the accuracy or completeness of information in this document.
[2023-12-20 09:41] LABS: Hematocrit 43.6 % (37-47); Hemoglobin 14.6 g/dL (12.0-15.0); Mean Corp Hgb Conc 33.5 g/dL (32-36); Mean Corpuscular Hgb 29.1 pg (27.0-32.0); Mean Platelet Vol. 10.7 fl (6.2-12.0); Platelet Count 288 K/mm3 (150-450); RBC Distribution Width CV 12.4 % (11.6-14.6); RBC Distribution Width SD 39.3 fl (35.1-43.9); Red Blood Count 5.01 M/mm3 (4.2-5.4); White Blood Count 6.9 K/mm3 (4.4-11.0)
[2023-12-20 10:27] LABS: ALB/GLOB Ratio 1.4 RATIO (0.9-2.4); AST(SGOT) 21 U/L (15-37); Alanine Aminotransfer ALT/SGPT 30 U/L (13-56); Albumin, Serum 4.2 g/dL (3.2-5.0); Alkaline Phosphatase 83 U/L (45-117); Anion Gap 6 (5-15); BUN 13 mg/dL (7-18); BUN/Creat Ratio 18.5 RATIO (10-20); Calcium,Total 9.2 mg/dL (8.5-10.1); Chloride 108 mmol/L (98-107); EST Glomerular Filtration Rate 107 mL/min (>60); Est Glom Filt Rate - Afr Amer 130 mL/min (>60); Globulin 3.1 g/dL (2.2-4.2); Glucose 85 mg/dL (74-106); Potassium 3.6 mmol/L (3.5-5.1); Protein, Total 7.3 g/dL (6.4-8.2); Sodium Level 139 mmol/L (136-145); T4 Free Direct 1.03 ng/dL (0.76-1.46); Thyroid Stim Hormone (TSH) 2.27 uIU/mL (0.358-3.74)
[2023-12-22 08:25] LABS: Vitamin D,25 Hydroxy 29.9 ng/mL
[2023-12-24 21:07] LABS: Anti-Thyroglobulin AB < 1.0 IU/mL (0.0-0.9); T3 Reverse 20.7 ng/dL (9.2-24.1); Thyroglobulin, Serum Qt. 15.5 ng/mL (1.5-38.5); Thyroid Peroxidase AB 10 IU/mL (0-34); Thyroid Stim Immunoglob <0.10 IU/L (0.00-0.55)
== END | disposition home or self-care (01) ==
LOC: LAB 08:44
PROVIDERS: PCP Family Medicine; Referring Provider Nurse Practitioner Family; Visit Provider Nurse Practitioner Family
DX: R53.83 Other fatigue (principal)
CPT/HCPCS: 36415; 80053; 82306; 82533; 84432; 84439; 84443; 84445; 84481; 84482; 85027; 86376; 86800